=== PATIENT | female | born 1935 | race Caucasian/White ===

== ENCOUNTER 2018-01-14 20:59 | Observation (INO) | payer MEDICARE, OTHER ==
[2018-01-14] MEDS: ASPIRIN 325 MG TAB PO (22:28)
[2018-01-14 22:54] LABS: ADD MAN DIFF? NO
[2018-01-14 22:55] LABS: BASOPHIL # 0.1 10^3/ul (0.0-0.1); EOSINOPHILS # 0.1 10^3/ul (0.0-0.5); EOSINOPHILS % 1.6 % (0.0-7.0); HEMATOCRIT 38.4 % (37.0-47.0); HEMOGLOBIN 12.3 g/dl (12.0-16.0); LYMPHOCYTES # 2.3 10^3/ul (0.8-2.9); LYMPHOCYTES % 32.8 % (15.0-51.0); MEAN CORPUSCULAR HEMOGLOBIN 28.3 pg (29.0-33.0); MEAN CORPUSCULAR VOLUME 88.5 fl (82.0-101.0); MEAN PLATELET VOLUME 9.7 fl (7.4-10.4); MONOCYTE # 0.7 10^3/ul (0.3-0.9); MONOCYTES % 9.9 % (0.0-11.0); NEUTROPHIL # 3.8 10^3/ul (1.6-7.5); NEUTROPHILS % 54.6 % (39.0-77.0); PLATELET COUNT 244 10^3/UL (140-415); RED BLOOD COUNT 4.34 10^6/ul (4.20-5.40); RED CELL DISTRIBUTION WIDTH 14.3 % (11.5-14.5)
[2018-01-14 22:55] LABS: WHITE BLOOD COUNT 6.9 10^3/ul (4.8-10.8)
[2018-01-14] MEDS: LIDOCAINE/MYLANTA 40 ML BTL PO (23:01)
[2018-01-14] MEDS: ONDANSETRON 4 MG INJ IV (23:01)
[2018-01-14 23:15] LABS: ANION GAP 12 (8-16); BLOOD UREA NITROGEN 13 mg/dl (7-20); CALCIUM 9.3 mg/dl (8.4-10.2); CARBON DIOXIDE 24 mmol/L (21-31); CHLORIDE 110 mmol/L (97-110); CREATININE 1.09 mg/dl (0.44-1.00); GLUCOSE 132 mg/dl (70-220); POTASSIUM 3.8 mmol/L (3.5-5.1); SODIUM 142 mmol/L (135-144)
[2018-01-14 23:26] LABS: B-TYPE NATRIURETIC PEPTIDE 317 PG/ML (0-450); TROPONIN-I 0.107 ng/ml (0.000-0.120)
[2018-01-14] MEDS: NITROGLYCERIN (SL) 0.4 MG TAB SL (23:34)
[2018-01-14] MEDS: traMADol 50 MG TAB PO (23:34)
[2018-01-15] MEDS: METOCLOPRAMIDE 10 MG INJ IV (01:16)
[2018-01-15] MEDS: DIPHENHYDRAMINE 50 MG INJ IV (01:16)
[2018-01-15 02:05] LABS: ADD UMIC YES; UR AMORPHOUS CRYSTAL MODERATE /HPF (NONE SEEN); UR ASCORBIC ACID NEGATIVE (NEGATIVE); UR BACTERIA FEW /HPF (NONE SEEN); UR BILIRUBIN (Dip) NEGATIVE (NEGATIVE); UR BLOOD (Dip) NEGATIVE (NEGATIVE); UR CLARITY CLOUDY (CLEAR); UR COLOR YELLOW (YELLOW); UR GLUCOSE (Dip) NEGATIVE (NEGATIVE); UR KETONES (Dip) NEGATIVE (NEGATIVE); UR LEUKOCYTE ESTERASE (Dip) NEGATIVE Leu/ul (NEGATIVE); UR NITRITE (Dip) NEGATIVE (NEGATIVE); UR RBC 3 /HPF (0-5); UR SPECIFIC GRAVITY (Dip) 1.009 (1.003-1.030); UR TOTAL PROTEIN (Dip) NEGATIVE (NEGATIVE); UR UROBILINOGEN (Dip) NEGATIVE (NEGATIVE); UR WBC 6 /HPF (0-5)
[2018-01-15] MEDS ORDERED: NITROGLYCERIN (SL) 0.4 MG TAB SL (03:00)
[2018-01-15] MEDS: ACETAMINOPHEN 325 MG TAB PO ×2 (04:17→13:04)
[2018-01-15 05:05] LABS: CREATINE KINASE 90 IU/L (23-200)
[2018-01-15 05:13] LABS: CK INDEX 0.7; CK-MB 0.67 ng/ml (0.0-2.4); TROPONIN-I 0.101 ng/ml (0.000-0.120)
[2018-01-15] MEDS: ASPIRIN (EC) 81 MG TAB PO (08:25)
[2018-01-15] MEDS: HEPARIN 5,000 UNIT/0.5 ML VIAL SC ×2 (08:33→20:46)
[2018-01-15] MEDS: METOPROLOL 25 MG TAB PO ×2 (08:34→20:41)
[2018-01-15 11:02] LABS: CREATINE KINASE 88 IU/L (23-200)
[2018-01-15 11:13] LABS: CK INDEX 0.6; CK-MB 0.53 ng/ml (0.0-2.4); TROPONIN-I 0.077 ng/ml (0.000-0.120)
[2018-01-15 13:27] LABS: SODIUM,URINE RANDOM 96 mmol/L (30-90)
[2018-01-15 13:27] LABS: CREATININE,URINE RANDOM 37.15 mg/dl (20-320)
[2018-01-15] MEDS ORDERED: CAFERGOT XX (14:00)
[2018-01-15] MEDS ORDERED: DICYCLOMINE 10 MG CAP PO (14:00)
[2018-01-15] MEDS ORDERED: [UNRECOGNIZED DRUG - REMARK] XX (15:00)
[2018-01-15] MEDS: [UNRECOGNIZED DRUG - OTHER] PR (15:44)
[2018-01-15] MEDS ORDERED: FLUTICASONE 0.05% 16 GM NAS SPRAY NASAL (16:00)
[2018-01-15] MEDS: DIAZEPAM 5 MG TAB PO ×2 (16:05→20:33)
[2018-01-15] MEDS: CITALOPRAM 20 MG TAB PO (16:05)
[2018-01-15] MEDS: ATORVASTATIN 80 MG TAB PO (16:05)
[2018-01-15] MEDS: PRAMIPEXOLE 0.125 MG TAB PO (16:32)
[2018-01-15] MEDS: ONDANSETRON 4 MG INJ IV (16:40)
[2018-01-15] MEDS: TOPIRAMATE 100 MG TAB PO (20:33)
[2018-01-16] MEDS: traMADol 50 MG TAB PO (01:22)
[2018-01-16] MEDS ORDERED: LEVOTHYROXINE 75 MCG TAB PO (06:00)
[2018-01-16] MEDS: LEVOTHYROXINE 50 MCG TAB PO (06:40)
[2018-01-16 07:06] LABS: ANION GAP 10 (8-16); BLOOD UREA NITROGEN 14 mg/dl (7-20); CALCIUM 9.3 mg/dl (8.4-10.2); CARBON DIOXIDE 28 mmol/L (21-31); CHLORIDE 110 mmol/L (97-110); CREATININE 1.19 mg/dl (0.44-1.00); GLUCOSE 97 mg/dl (70-220); MAGNESIUM 2.4 mg/dl (1.7-2.5); PHOSPHORUS 3.8 mg/dl (2.5-4.9); POTASSIUM 4.1 mmol/L (3.5-5.1); SODIUM 144 mmol/L (135-144)
[2018-01-16] MEDS: TOPIRAMATE 100 MG TAB PO ×2 (09:05→21:55)
[2018-01-16] MEDS: CITALOPRAM 20 MG TAB PO (09:05)
[2018-01-16] MEDS: PRAMIPEXOLE 0.125 MG TAB PO (09:05)
[2018-01-16] MEDS: METOPROLOL 25 MG TAB PO ×2 (09:07→21:00)
[2018-01-16] MEDS: ASPIRIN (EC) 81 MG TAB PO (09:07)
[2018-01-16] MEDS: HEPARIN 5,000 UNIT/0.5 ML VIAL SC ×2 (09:33→22:13)
[2018-01-16] MEDS: ATORVASTATIN 80 MG TAB PO (09:41)
[2018-01-16] MEDS: DIAZEPAM 5 MG TAB PO ×2 (09:41→22:15)
[2018-01-16] MEDS: [UNRECOGNIZED DRUG - OTHER] PR (09:54)
[2018-01-16] MEDS: POLYETHYLENE GLYCOL 17 GM PACKET PO (15:24)
[2018-01-17] MEDS: LEVOTHYROXINE 75 MCG TAB PO (06:40)
[2018-01-17 07:38] LABS: ANION GAP 12 (8-16); BLOOD UREA NITROGEN 15 mg/dl (7-20); CARBON DIOXIDE 25 mmol/L (21-31); CHLORIDE 110 mmol/L (97-110); CREATININE 1.08 mg/dl (0.44-1.00); GLUCOSE 93 mg/dl (70-220); MAGNESIUM 2.2 mg/dl (1.7-2.5); PHOSPHORUS 3.8 mg/dl (2.5-4.9); POTASSIUM 3.8 mmol/L (3.5-5.1); SODIUM 143 mmol/L (135-144)
[2018-01-17] MEDS: ASPIRIN (EC) 81 MG TAB PO (08:18)
[2018-01-17] MEDS: DIAZEPAM 5 MG TAB PO (08:18)
[2018-01-17] MEDS: TOPIRAMATE 100 MG TAB PO (08:18)
[2018-01-17] MEDS: PRAMIPEXOLE 0.125 MG TAB PO (08:18)
[2018-01-17] MEDS: ATORVASTATIN 80 MG TAB PO (08:18)
[2018-01-17] MEDS: CITALOPRAM 20 MG TAB PO (08:19)
[2018-01-17] MEDS: METOPROLOL 25 MG TAB PO (08:20)
[2018-01-17] MEDS: HEPARIN 5,000 UNIT/0.5 ML VIAL SC (08:29)
[2018-01-17] MEDS: POLYETHYLENE GLYCOL 17 GM PACKET PO (08:31)
[2018-01-17 14:42] LABS: CREATININE, RANDOM URINE 37 mg/dL (20-275); MICROALBUMIN 0.6 mg/dL; MICROALBUMIN/CREATININE RATIO 16 (<30)
[2018-01-17] MEDS: [UNRECOGNIZED DRUG - OTHER] PR (16:35)
== END 2018-01-17 19:44 | disposition home or self-care (01) ==
LOC: E/R 20:59 → TEL 01-15 01:03
DX: I47.1 Supraventricular tachycardia (principal); I48.0 Paroxysmal atrial fibrillation; I25.10 Atherosclerotic heart disease of native coronary artery without angina pectoris; E03.9 Hypothyroidism, unspecified; E78.5 Hyperlipidemia, unspecified; M89.9 Disorder of bone, unspecified; J45.909 Unspecified asthma, uncomplicated; N28.9 Disorder of kidney and ureter, unspecified
CPT/HCPCS: 36415; 71045; 76775; 80048; 81001; 81003; 82043; 82550; 82553; 83735; 83880; 84100; 84155; 84300; 84484; 85025; 87081; 93005; 93306; 96374; 99285-25; G0378

== ENCOUNTER 2018-09-27 20:58 | Emergency (ER) | payer MEDICARE, OTHER ==
[2018-09-27] MEDS: SOD CHLORIDE 0.9% 500 ML IV (23:02)
[2018-09-27 23:12] LABS: ADD MAN DIFF? NO
[2018-09-27] MEDS: IPRATROPIUM (NEB) 0.5 MG/2.5 ML AMP INH (23:19)
[2018-09-27] MEDS: ALBUTEROL 0.083% (NEB) 2.5 MG/3 ML AMP HHN (23:19)
[2018-09-27 23:21] LABS: WHITE BLOOD COUNT 9.1 10^3/ul (4.8-10.8)
[2018-09-27 23:21] LABS: BASOPHIL # 0.1 10^3/ul (0.0-0.1); BASOPHILS % 0.9 % (0.0-2.0); EOSINOPHILS # 0.2 10^3/ul (0.0-0.5); EOSINOPHILS % 2.1 % (0.0-7.0); HEMATOCRIT 38.8 % (37.0-47.0); HEMOGLOBIN 12.5 g/dl (12.0-16.0); LYMPHOCYTES # 1.8 10^3/ul (0.8-2.9); LYMPHOCYTES % 19.3 % (15.0-51.0); MEAN CORPUSCULAR HEMOGLOBIN 28.2 pg (29.0-33.0); MEAN CORPUSCULAR HGB CONC 32.2 g/dl (32.0-37.0); MEAN CORPUSCULAR VOLUME 87.4 fl (82.0-101.0); MEAN PLATELET VOLUME 9.4 fl (7.4-10.4); MONOCYTE # 0.8 10^3/ul (0.3-0.9); MONOCYTES % 8.5 % (0.0-11.0); NEUTROPHIL # 6.3 10^3/ul (1.6-7.5); NEUTROPHILS % 68.9 % (39.0-77.0); PLATELET COUNT 295 10^3/UL (140-415); RED BLOOD COUNT 4.44 10^6/ul (4.20-5.40); RED CELL DISTRIBUTION WIDTH 14.2 % (11.5-14.5)
[2018-09-27 23:33] LABS: ALANINE AMINOTRANSFERASE 13 IU/L (13-69); ALBUMIN 4.4 g/dl (3.3-4.9); ALBUMIN/GLOBULIN RATIO 1.33; ALKALINE PHOSPHATASE 87 IU/L (42-121); ANION GAP 9 (5-13); ASPARTATE AMINO TRANSFERASE 34 IU/L (15-46); BILIRUBIN,INDIRECT 0.7 mg/dl (0-1.1); BILIRUBIN,TOTAL 0.7 mg/dl (0.2-1.3); BLOOD UREA NITROGEN 9 mg/dl (7-20); CALCIUM 9.1 mg/dl (8.4-10.2); CARBON DIOXIDE 22 mmol/L (21-31); CHLORIDE 111 mmol/L (97-110); CREATININE 1.01 mg/dl (0.44-1.00); GLUCOSE 125 mg/dl (70-220); POTASSIUM 4.4 mmol/L (3.5-5.1); SODIUM 142 mmol/L (135-144); TOTAL PROTEIN 7.7 g/dl (6.1-8.1)
[2018-09-27 23:45] LABS: B-TYPE NATRIURETIC PEPTIDE 203 PG/ML (0-450); TROPONIN-I < 0.012 ng/ml (0.000-0.120)
== END 2018-09-28 00:44 | disposition home or self-care (01) ==
LOC: E/R 09-28 00:44
DX: J40 Bronchitis, not specified as acute or chronic (principal)
CPT/HCPCS: 36415; 71045; 80053; 83605; 83880; 84484; 85025; 87040-91; 94664; 99284-25

== ENCOUNTER 2018-10-07 16:27 | Emergency (ER) | payer MEDICARE, OTHER ==
[2018-10-07 18:52] LABS: ADD MAN DIFF? NO
[2018-10-07 18:54] LABS: BASOPHIL # 0.1 10^3/ul (0.0-0.1); BASOPHILS % 0.8 % (0.0-2.0); EOSINOPHILS # 0.2 10^3/ul (0.0-0.5); EOSINOPHILS % 1.8 % (0.0-7.0); HEMATOCRIT 39.5 % (37.0-47.0); HEMOGLOBIN 12.7 g/dl (12.0-16.0); LYMPHOCYTES # 2.1 10^3/ul (0.8-2.9); LYMPHOCYTES % 23.5 % (15.0-51.0); MEAN CORPUSCULAR HEMOGLOBIN 28.1 pg (29.0-33.0); MEAN CORPUSCULAR HGB CONC 32.2 g/dl (32.0-37.0); MEAN CORPUSCULAR VOLUME 87.4 fl (82.0-101.0); MEAN PLATELET VOLUME 8.8 fl (7.4-10.4); MONOCYTE # 0.7 10^3/ul (0.3-0.9); MONOCYTES % 7.7 % (0.0-11.0); NEUTROPHIL # 5.9 10^3/ul (1.6-7.5); NEUTROPHILS % 65.6 % (39.0-77.0); PLATELET COUNT 297 10^3/UL (140-415); RED BLOOD COUNT 4.52 10^6/ul (4.20-5.40); RED CELL DISTRIBUTION WIDTH 14.6 % (11.5-14.5)
[2018-10-07 19:14] LABS: ALANINE AMINOTRANSFERASE 22 IU/L (13-69); ALBUMIN/GLOBULIN RATIO 1.29; ALKALINE PHOSPHATASE 69 IU/L (42-121); ANION GAP 8 (5-13); ASPARTATE AMINO TRANSFERASE 18 IU/L (15-46); BILIRUBIN,INDIRECT 0.4 mg/dl (0-1.1); BILIRUBIN,TOTAL 0.4 mg/dl (0.2-1.3); BLOOD UREA NITROGEN 13 mg/dl (7-20); CARBON DIOXIDE 27 mmol/L (21-31); CHLORIDE 110 mmol/L (97-110); CREATININE 1.04 mg/dl (0.44-1.00); GLUCOSE 115 mg/dl (70-220); LIPASE 221 U/L (23-300); POTASSIUM 3.4 mmol/L (3.5-5.1); SODIUM 145 mmol/L (135-144); TOTAL PROTEIN 7.1 g/dl (6.1-8.1)
[2018-10-07 19:26] LABS: B-TYPE NATRIURETIC PEPTIDE 133 PG/ML (0-450); TROPONIN-I < 0.012 ng/ml (0.000-0.120)
[2018-10-07 19:36] LABS: AADO2 Arterial 34.1 mmHg (7.0-24.0); Arterial Base Excess -0.7 mmol/L (-3.0-3); Arterial COHb 0.1 % (0.0-3.0); Arterial Fraction of Oxyhgb 97.6 % (93.0-99.0); Arterial HCO3 23.8 mmol/L (22.0-26.0); Arterial MetHb 0.3 % (0.0-1.5); MODE NASAL CANNULA; Site Right Brachial
[2018-10-07] MEDS: SOD CHLORIDE 0.9% 500 ML IV (20:38)
== END 2018-10-07 21:38 | disposition home or self-care (01) ==
LOC: E/R 16:27
DX: I87.2 Venous insufficiency (chronic) (peripheral) (principal); I25.10 Atherosclerotic heart disease of native coronary artery without angina pectoris; J45.901 Unspecified asthma with (acute) exacerbation; E66.9 Obesity, unspecified; Z68.34 Body mass index [BMI] 34.0-34.9, adult
CPT/HCPCS: 36415; 36600; 71045; 71275; 80053; 82803; 83690; 83880; 84484; 85025; 93005; 96360; 99285-25

== ENCOUNTER 2018-10-30 20:40 | Emergency (ER) | payer MEDICARE, OTHER ==
[2018-10-30 21:58] LABS: ADD MAN DIFF? NO
[2018-10-30 22:08] LABS: BASOPHIL # 0.1 10^3/ul (0.0-0.1); BASOPHILS % 1.3 % (0.0-2.0); EOSINOPHILS # 0.2 10^3/ul (0.0-0.5); EOSINOPHILS % 2.3 % (0.0-7.0); HEMATOCRIT 34.6 % (37.0-47.0); HEMOGLOBIN 11.4 g/dl (12.0-16.0); LYMPHOCYTES # 1.7 10^3/ul (0.8-2.9); MEAN CORPUSCULAR HEMOGLOBIN 28.5 pg (29.0-33.0); MEAN CORPUSCULAR HGB CONC 32.9 g/dl (32.0-37.0); MEAN CORPUSCULAR VOLUME 86.5 fl (82.0-101.0); MONOCYTE # 0.5 10^3/ul (0.3-0.9); MONOCYTES % 7.3 % (0.0-11.0); NEUTROPHIL # 4.6 10^3/ul (1.6-7.5); NEUTROPHILS % 64.8 % (39.0-77.0); PLATELET COUNT 336 10^3/UL (140-415); RED CELL DISTRIBUTION WIDTH 14.7 % (11.5-14.5)
[2018-10-30] MEDS: ACETAMINOPHEN 325 MG TAB PO (22:16)
== END 2018-10-30 23:01 | disposition home or self-care (01) ==
LOC: E/R 20:40
DX: R04.0 Epistaxis (principal)
CPT/HCPCS: 30901; 85025; 99283-25